=== PATIENT | female | born 1990 | race Caucasian/White ===

== ENCOUNTER 2019-10-17 01:19 | Inpatient (IN) | payer BC, OTHER ==
[~2019-10-17] VITALS: Ht 175.3 cm; Wt 87.9 kg
[~2019-10-17 01:19] MED LIST: ACEASPCAF; AMOX500 PO; BIRTH CONTROL PILLS; CEPH500 PO; CIPR500 PO; CYCL10 PO; ETHIN; HYDACE5 PO; IBUP400 PO; IBUP800 PO; LEVONORGESTREL; META800 PO; NAPR375 PO; NAPR500 PO; RXCYCL10 PO; RXHYDACE PO; RXPROACE PO; TRAZ50; YASMINE
[2019-10-17 04:48] LABS: BASOPHILS ABSOLUTE AUTO 0.05 K/mm3 (0.00-0.23); BASOPHILS PERCENT AUTO 0 % (0-2); EOSINOPHILS ABSOLUTE AUTO 0.01 K/mm3 (0.00-0.68); EOSINOPHILS PERCENT AUTO 0 % (0-6); Hematocrit 39.8 % (33.0-51.0); Hemoglobin 13.4 g/dL (11.5-16.0); IMMATURE GRAN ABSOLUTE AUTO 0.16 K/mm3 (0.00-0.10); IMMATURE GRAN PERCENT AUTO 1 % (0-1); LYMPHOCYTES ABSOLUTE AUTO 1.69 K/mm3 (0.84-5.20); LYMPHOCYTES PERCENT AUTO 8 % (21-46); MONOCYTES ABSOLUTE AUTO 0.95 K/mm3 (0.16-1.47); MONOCYTES PERCENT AUTO 4 % (4-13); Mean Corpuscular HGB 30.7 pg (26.0-34.0); Mean Corpuscular HGB Conc 33.7 g/dL (31.5-36.5); Mean Corpuscular Volume 91 fL (80-100); NEUTROPHILS ABSOLUTE AUTO 19.31 K/mm3 (1.96-9.15); NEUTROPHILS PERCENT AUTO 87 % (41-73); Platelet Count 247 K/mm3 (150-400); RDW Coefficient Variation 12.7 % (11.7-14.2); RDW Standard Deviation 42.1 fL (35.1-46.3); Red Blood Cell Count 4.36 M/mm3 (3.80-5.20); White Blood Cell Count 22.17 K/mm3 (4.00-11.30)
[2019-10-17] MEDS ORDERED: PRENATAL TABLE1 EAC2 PO (04:57)
[2019-10-17] MEDS ORDERED: UNISOM25 MG PO (04:58)
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
[2019-10-18 06:06] LABS: Hematocrit 38.7 % (33.0-51.0); Hemoglobin 12.9 g/dL (11.5-16.0); Mean Corpuscular HGB 30.6 pg (26.0-34.0); Mean Corpuscular HGB Conc 33.3 g/dL (31.5-36.5); Mean Corpuscular Volume 92 fL (80-100); Mean Platelet Volume 11.2 fL (9.1-12.4); Platelet Count 212 K/mm3 (150-400); RDW Coefficient Variation 12.9 % (11.7-14.2); Red Blood Cell Count 4.21 M/mm3 (3.80-5.20); White Blood Cell Count 13.72 K/mm3 (4.00-11.30)
== END 2019-10-18 10:08 | disposition home or self-care (01) | DRG 807 ==
LOC: OBS 01:19 → BC 01:19 → OBS 01:35 → BC 01:47
PROVIDERS: ADMIT Advanced Practice Midwife
PROC: 10E0XZZ Delivery of Products of Conception, External Approach (ICD-10-PCS; principal; 2019-10-17)
DX: O77.0 Labor and delivery complicated by meconium in amniotic fluid (principal); Z37.0 Single live birth; Z3A.38 38 weeks gestation of pregnancy; O62.3 Precipitate labor; O69.81X0 Labor and delivery complicated by cord around neck, without compression, not applicable or unspecified
CPT/HCPCS: 36415; 85025; 85027; 86850; 86900; 86901; J1885; J2590

== ENCOUNTER → 2025-05-12 | Outpatient (CLI) | payer BC, OTHER ==
[~2025-05-12] MED LIST changes: +PRENATAL TABLE1 EAC2 PO; +UNISOM25 MG PO
== END | disposition home or self-care (01) ==
LOC: LAB SHORT 17:24 → LAB 17:24
DX: O09.90 Supervision of high risk pregnancy, unspecified, unspecified trimester (principal); Z3A.00 Weeks of gestation of pregnancy not specified
CPT/HCPCS: 87081; 87150

== ENCOUNTER 2025-06-07 03:35 | Inpatient (IN) | payer BC, OTHER ==
[~2025-06-07] VITALS: Ht 175.3 cm; Wt 91.0 kg
[2025-06-07] VITALS (15 sets, daily range): BP systolic 107–138; BP diastolic 58–80
[2025-06-07] MEDS ORDERED: OXYTOCIN/RINGER'S LACTATE 500 ML IV PRN (03:55)
[2025-06-07] MEDS ORDERED: Carboprost Tromethamine 250 MCG/ML 1ML Amp IM PRN (03:55)
[2025-06-07] MEDS ORDERED: FentaNYL 2mcg/ml-Bup 0.1% Epd 250 ML EPI PRN (03:55)
[2025-06-07] MEDS ORDERED: Tranexamic Acid 100 ML IV PRN (03:55)
[2025-06-07] MEDS ORDERED: Ondansetron HCl 2 MG / ML 2ML Vial IV PRN (03:55)
[2025-06-07] MEDS ORDERED: Oxytocin 10 Unit / ML Vial IM PRN (03:55)
[2025-06-07] MEDS ORDERED: Methylergonovine Maleate 0.2MG / ML 1ML Amp IM PRN (03:55)
[2025-06-07] MEDS ORDERED: ePHEDrine Sulfate 50 MG/ML 1ML Injection XX PRN (03:55)
[2025-06-07 04:48] LABS: BASOPHILS ABSOLUTE AUTO 0.09 K/mm3 (0.00-0.23); BASOPHILS PERCENT AUTO 0 % (0-2); EOSINOPHILS ABSOLUTE AUTO 0.23 K/mm3 (0.00-0.68); EOSINOPHILS PERCENT AUTO 1 % (0-6); Hematocrit 37.3 % (33.0-51.0); Hemoglobin 13.0 g/dL (11.5-16.0); IMMATURE GRAN ABSOLUTE AUTO 0.13 K/mm3 (0.00-0.10); IMMATURE GRAN PERCENT AUTO 1 % (0-1); LYMPHOCYTES ABSOLUTE AUTO 3.87 K/mm3 (0.84-5.20); LYMPHOCYTES PERCENT AUTO 19 % (21-46); MONOCYTES ABSOLUTE AUTO 1.92 K/mm3 (0.16-1.47); MONOCYTES PERCENT AUTO 9 % (4-13); Mean Corpuscular HGB Conc 34.9 g/dL (31.5-36.5); Mean Corpuscular Volume 85 fL (80-100); NEUTROPHILS ABSOLUTE AUTO 14.60 K/mm3 (1.96-9.15); NEUTROPHILS PERCENT AUTO 70 % (41-73); NRBC ABSOLUTE 0.00 K/mm3 (0.00-0.02); NRBC Auto 0.0 /100 WBC (0.0-0.2); Platelet Count 275 K/mm3 (150-400); RDW Coefficient Variation 12.8 % (11.7-14.2); RDW Standard Deviation 39.3 fL (35.1-46.3)
[2025-06-07] MEDS ORDERED: Witch Hazel/Glycerin PADS TOP PRN (05:10)
[2025-06-07] MEDS ORDERED: Benzocaine Topical Anesthetic Spray 60GM TOP PRN (05:15)
[2025-06-07] MEDS ORDERED: Oxytocin 10 Unit / ML Vial IM ONE (05:15)
[2025-06-07] MEDS ORDERED: Ketorolac Tromethamine 30mg Vial IV ONE (06:00)
[2025-06-07] MEDS ORDERED: Prenatal Vit/FE Fumarate/FA 1 Tab PO SCH (09:00)
[2025-06-07] MEDS ORDERED: Ketorolac Tromethamine 30mg Vial IV PRN (11:00)
[2025-06-07] MEDS ORDERED: Rho(D) Immune Globulin 300 MCG / SYR IM ONE (16:00)
--- NOTE | 2025-06-07 23:36 | NUR ---
Assumed care at change of shift. Denies pain or discomfort, asks for minimal interuptions throughout the night, and requests to leave as soon as possible in the mornin. Explinaed plan for care overnight and testing needs in the morning, what to expect for discharge. Patient agrees with plan of care.
[2025-06-08 05:29] VITALS: BP 101/58
[2025-06-08 09:23] VITALS: BP 109/59
[2025-06-08 10:22] VITALS: BP 113/55
== END 2025-06-08 11:02 | disposition home or self-care (01) | DRG 806 ==
LOC: OBS 03:35 → BC 03:37 → OBS 03:55 → BC 20:43
PROVIDERS: ADMIT Family Medicine
PROC: 10E0XZZ Delivery of Products of Conception, External Approach (ICD-10-PCS; principal; 2025-06-07)
DX: O99.344 Other mental disorders complicating childbirth (principal); O99.354 Diseases of the nervous system complicating childbirth; Z37.0 Single live birth; M41.9 Scoliosis, unspecified; O26.893 Other specified pregnancy related conditions, third trimester; R01.1 Cardiac murmur, unspecified; F41.8 Other specified anxiety disorders; F90.9 Attention-deficit hyperactivity disorder, unspecified type; O99.284 Endocrine, nutritional and metabolic diseases complicating childbirth; E04.9 Nontoxic goiter, unspecified; Z88.2 Allergy status to sulfonamides; Z88.8 Allergy status to other drugs, medicaments and biological substances; Z3A.39 39 weeks gestation of pregnancy; Z79.899 Other long term (current) drug therapy
CPT/HCPCS: 36415; 59025; 85025; 85460; 99214; A9270; J1885; J2791

== ENCOUNTER 2025-06-26 07:07 | Emergency (ER) | payer BC, OTHER ==
[~2025-06-26] VITALS: Ht 175.3 cm; Wt 63.5 kg
[2025-06-26] MEDS ORDERED: NS 1,000 ML IV SCH (07:40)
[2025-06-26] MEDS ORDERED: Ketorolac Tromethamine 30mg Vial IV ONE ×2 (07:40→09:45)
[2025-06-26 09:45] LABS: BASOPHILS ABSOLUTE AUTO 0.04 K/mm3 (0.00-0.23); BASOPHILS PERCENT AUTO 0 % (0-2); EOSINOPHILS ABSOLUTE AUTO 0.15 K/mm3 (0.00-0.68); EOSINOPHILS PERCENT AUTO 1 % (0-6); Hematocrit 39.3 % (33.0-51.0); Hemoglobin 13.2 g/dL (11.5-16.0); IMMATURE GRAN ABSOLUTE AUTO 0.04 K/mm3 (0.00-0.10); IMMATURE GRAN PERCENT AUTO 0 % (0-1); LYMPHOCYTES ABSOLUTE AUTO 1.47 K/mm3 (0.84-5.20); LYMPHOCYTES PERCENT AUTO 12 % (21-46); MONOCYTES ABSOLUTE AUTO 0.66 K/mm3 (0.16-1.47); MONOCYTES PERCENT AUTO 6 % (4-13); Mean Corpuscular HGB Conc 33.6 g/dL (31.5-36.5); Mean Corpuscular Volume 87 fL (80-100); NEUTROPHILS ABSOLUTE AUTO 9.64 K/mm3 (1.96-9.15); NEUTROPHILS PERCENT AUTO 80 % (41-73); NRBC ABSOLUTE 0.00 K/mm3 (0.00-0.02); NRBC Auto 0.0 /100 WBC (0.0-0.2); Platelet Count 291 K/mm3 (150-400); RDW Coefficient Variation 12.4 % (11.7-14.2); RDW Standard Deviation 39.9 fL (35.1-46.3)
[2025-06-26 10:07] LABS: Alanine Aminotransfer (ALT/SGP 33.0 U/L (12-78); Albumin, Blood 3.5 g/dL (3.4-5.0); Albumin/Globulin Ratio 0.8 (0.8-1.8); Anion Gap 8.0 mmol/L (3-11); Aspartate Aminotrans (AST/SGOT 24.0 U/L (12-37); Bilirubin, Total 0.5 mg/dL (0.1-1.0); Blood Urea Nitrogen 16.0 mg/dL (8-24); CO2, Blood 24.0 mmol/L (21-32); Calcium, Blood 8.4 mg/dL (8.5-10.1); Chloride, Blood 108.0 mmol/L (98-108); Creatinine, Blood 0.83 mg/dL (0.40-1.00); Globulin, Blood 4.3 g/dL (2.2-4.0); Glucose, Blood 117.0 mg/dL (70-99); Potassium, Blood 4.0 mmol/L (3.5-5.5); Sodium, Blood 136.0 mmol/L (136-145); Total Protein, Blood 7.8 g/dL (6.4-8.2)
[2025-06-26] MEDS ORDERED: Ondansetron HCl 2 MG / ML 2ML Vial IV ONE (11:20)
[2025-06-26] MEDS ORDERED: FentaNYL Citrate 50 MCG/ML 2 ML Injection IV ONE (11:20)
[2025-06-26] MEDS ORDERED: Fluorescein Sod 1MG Opth Strips RIGHTEYE ONE (11:20)
[2025-06-26] MEDS ORDERED: Tetracaine HCl/Pf 0.5% Opth Soln 4 ml BOTHEYES ONE (11:20)
[2025-06-26] MEDS ORDERED: ZEBUTAL 50-3251 EAC1 PO (13:42)
[2025-06-26 13:56] VITALS: BP 112/68
== END 2025-06-26 14:03 | disposition home or self-care (01) ==
LOC: ER 07:07
PROVIDERS: Emergency Medicine
DX: R51.9 Headache, unspecified (principal); Z88.2 Allergy status to sulfonamides; Z91.018 Allergy to other foods; Z88.1 Allergy status to other antibiotic agents; Z88.8 Allergy status to other drugs, medicaments and biological substances
CPT/HCPCS: 70450; 80053; 85025; 85651; 96374; 96375; 99284-25; A9270; J1885; J2405; J3010; J7030